=== PATIENT | male | born 1990 | race African-American/Black ===

== ENCOUNTER 2020-01-03 17:26 | Emergency (ER) | payer SELFPAY ==
[~2020-01-03] VITALS: Ht 172.7 cm; Wt 108.9 kg
[2020-01-03] MEDS ORDERED: OMEP20CA15 PO (17:33)
[2020-01-03 17:57] LABS: BASOPHILS # (AUTO) 0.1 K/uL (0.0-8.0); BASOPHILS % (AUTO) 0.9 % (0.0-2.0); EOSINOPHILS # (AUTO) 0.2 K/uL (0.0-0.7); EOSINOPHILS % (AUTO) 2.1 % (0.0-7.0); HEMATOCRIT 46.7 % (36.7-47.1); HEMOGLOBIN 15.7 g/dL (12.5-16.3); LYMPHOCYTES # (AUTO) 2.6 K/uL (20.0-40.0); LYMPHOCYTES % (AUTO) 32.1 % (20.5-51.5); MEAN CORPUSCULAR HEMOGLOBIN 30.1 uug (23.8-33.4); MEAN CORPUSCULAR HGB CONC 34 g/dL (32.5-36.3); MEAN CORPUSCULAR VOLUME 89.5 fL (73.0-96.2); MONOCYTES # (AUTO) 0.7 K/uL (2.0-10.0); NEUTROPHILS # (AUTO) 4.5 K/uL (1.8-8.9); NEUTROPHILS % (AUTO) 55.9 % (38.5-71.5); PLATELET COUNT (AUTO) 260 K/uL (152-348); RED BLOOD CELL COUNT(AUTO) 5.22 MIL/uL (4.06-5.63); WHITE BLOOD COUNT (AUTO) 8.1 K/uL (3.6-10.2)
[2020-01-03 18:05] LABS: CREATININE 1.3 mg/dL (0.6-1.3); POTASSIUM 3.7 mmol/L (3.5-5.1)
--- NOTE | 2020-01-03 18:10 | NUR ---
Dr. Rodriguez at the bedside for MSE. Addendum: 01/03/20 at 1813 by SAMREEN *Disregard note mischarted wrong patient
[2020-01-03 18:11] LABS: BILIRUBIN,DIRECT 0.1 mg/dL (0.0-0.2); BILIRUBIN,TOTAL 0.3 mg/dL (0.2-1.0)
--- NOTE | 2020-01-03 18:27 | NUR ---
Patient discharged to home in stable condition. Written and verbal after care instructions given. Patient verbalizes understanding of instructions. pt walks in steady gait. pt says feels better. Stressed follow up or return to ER for worsening s/s.
[2020-01-03 18:28] VITALS: BP 131/81
== END 2020-01-03 18:27 | disposition home or self-care (01) ==
LOC: ER 17:26
DX: R07.89 Other chest pain (principal); K21.9 Gastro-esophageal reflux disease without esophagitis; Z79.899 Other long term (current) drug therapy
CPT/HCPCS: 36415; 70030-TC; 71045; 85025; 85730; 93005; A4663

== ENCOUNTER 2020-03-04 15:11 | Emergency (ER) | payer MEDICAID, OTHER ==
[~2020-03-04] VITALS: Ht 172.7 cm; Wt 104.3 kg
[~2020-03-04 15:11] MED LIST: OMEP20CA15 PO
--- NOTE | 2020-03-04 16:27 | NUR ---
PATIENT WAS SEEN BY . XRAYS DONE. DC AND FOLLOW UP INSTRUCTIONS GIVEN AND EXPLAINED TO PATIENT WHO STATES HE UNDERSTANDS ALL INSTRUCTIONS
== END 2020-03-04 16:30 | disposition home or self-care (01) ==
LOC: ER 15:13
DX: S16.1XXA Strain of muscle, fascia and tendon at neck level, initial encounter (principal); V49.9XXA Car occupant (driver) (passenger) injured in unspecified traffic accident, initial encounter; Y92.410 Unspecified street and highway as the place of occurrence of the external cause; M25.512 Pain in left shoulder; K21.9 Gastro-esophageal reflux disease without esophagitis
CPT/HCPCS: 72050; 73020; A4663

== ENCOUNTER 2020-09-28 13:19 | Emergency (ER) | payer MEDICAID, OTHER ==
[~2020-09-28] VITALS: Ht 172.7 cm; Wt 108.0 kg
--- NOTE | 2020-09-28 13:38 | NUR ---
Patient discharged to home in stable condition. Written and verbal after care instructions given. Patient verbalizes understanding of instructions. Stressed follow up or return to ER for worsening s/s.
== END 2020-09-28 13:41 | disposition home or self-care (01) ==
LOC: ER 13:21
DX: M43.6 Torticollis (principal); K21.9 Gastro-esophageal reflux disease without esophagitis; Z79.899 Other long term (current) drug therapy; R03.0 Elevated blood-pressure reading, without diagnosis of hypertension
CPT/HCPCS: A4663

== ENCOUNTER 2024-09-07 16:00 | Emergency (ER) | payer OTHER ==
[~2024-09-07] VITALS: Ht 172.7 cm; Wt 111.1 kg
[2024-09-07 16:19] VITALS: O2SAT 97
[2024-09-08] MEDS ORDERED: ACET1TAB23 PO (09:43)
== END 2024-09-07 22:00 | disposition left against medical advice (07) ==
LOC: ER 16:00
DX: Z04.1 Encounter for examination and observation following transport accident (principal); Z53.21 Procedure and treatment not carried out due to patient leaving prior to being seen by health care provider
CPT/HCPCS: A4606; A4663

== ENCOUNTER 2024-09-08 08:42 | Emergency (ER) | payer OTHER ==
[~2024-09-08] VITALS: Ht 172.7 cm; Wt 111.1 kg
[2024-09-08] MEDS ORDERED: ACET1TAB23 PO (09:43)
[2024-09-08 09:52] VITALS: BP 136/74; O2SAT 99
== END 2024-09-08 09:52 | disposition home or self-care (01) ==
LOC: ER 08:42
DX: Z04.1 Encounter for examination and observation following transport accident (principal); M54.50 Low back pain, unspecified; M54.6 Pain in thoracic spine; G44.309 Post-traumatic headache, unspecified, not intractable; K21.9 Gastro-esophageal reflux disease without esophagitis; Z79.899 Other long term (current) drug therapy; Z88.0 Allergy status to penicillin; V49.40XA Driver injured in collision with unspecified motor vehicles in traffic accident, initial encounter; Y93.89 Activity, other specified; Y92.410 Unspecified street and highway as the place of occurrence of the external cause; Y99.8 Other external cause status
CPT/HCPCS: A4606; A4663